=== PATIENT | male | born 1965 | race Caucasian/White ===

== ENCOUNTER 2021-03-01 04:30 | Emergency (ER) | payer OTHER ==
[~2021-03-01] VITALS: Ht 175.3 cm; Wt 113.4 kg
--- NOTE | 2021-03-01 04:30 | NUR ---
PT BIB [facility], PREBOOK. TAKEN TO [facility] B
[2021-03-01 04:33] VITALS: BP 156/72
[2021-03-01 05:10] VITALS: BP 156/72
--- NOTE | 2021-03-01 05:11 | NUR ---
PATIENT BIB [facility]. PATIENT EXAMINED BY DR. OTERO. PATIENT MEDICALLY CLEARED AND RELEASED IN CUSTODY IN STABLE CONDITION. ORIGINAL PRE-BOOK FORM GIVEN TO OFFICER AISLINN.
== END 2021-03-01 05:11 ==
LOC: MED 04:30
DX: F10.129 Alcohol abuse with intoxication, unspecified (principal); Z02.89 Encounter for other administrative examinations; V98.8XXA Other specified transport accidents, initial encounter; Y93.89 Activity, other specified; Y92.89 Other specified places as the place of occurrence of the external cause; Y99.8 Other external cause status; Y90.8 Blood alcohol level of 240 mg/100 ml or more
CPT/HCPCS: 99283